=== PATIENT | male | born 1990 | race Caucasian/White ===

== ENCOUNTER 2024-05-09 03:34 | Emergency (ER) | payer SELFPAY ==
--- NOTE | 2024-05-09 04:09 | EDPHYS ---
Physician Documentation [facility] Name: Brett Strauss Age: 33 yrs Sex: Male : 1990 Arrival Date: 05/09/2024 Time: 03:34 Bed 6 Private MD: ED Physician Van Sadler HPI: 05/09 04:06 This 33 yrs old Male presents to ER via Ambulatory with complaints of Ear Pain. sp3 04:06 33-year-old male with history of diabetes, hypertension presents with left ear pain sp3 after swimming over the weekend. Pain is worse when he moves his ear. Patient has history of this in the past with otitis externa. He denies any fever, neck pain, jaw pain, dental pain, back pain, chest pain, shortness of breath, abdominal pain, nausea, vomiting, diarrhea, fever, known sick contacts, travel history, or any other signs or symptoms on ROS at this time.. Historical: - Allergies: 03:46 No Known Allergies; br2 - Home Meds: 03:46 Metformin Oral [Active]; lisinopril Oral [Active]; br2 - PMHx: 03:46 Diabetes mellitus; Hypertensive disorder; br2 - Immunization history:: Adult Immunizations unknown, Client reports having NOT received the Covid vaccine. - Infectious Disease History:: Denies. - Social history:: Smoking status: Patient denies any tobacco usage or history of. ROS: 04:06 Constitutional: Negative for fever, chills, and weight loss, Eyes: Negative for injury, sp3 pain, redness, and discharge, Neck: Negative for injury, pain, and swelling, Cardiovascular: Negative for chest pain, palpitations, and edema, Respiratory: Negative for shortness of breath, cough, wheezing, and pleuritic chest pain, Abdomen/GI: Negative for abdominal pain, nausea, vomiting, diarrhea, and constipation, Back: Negative for injury and pain, MS/Extremity: Negative for injury and deformity, Skin: Negative for injury, rash, and discoloration, Neuro: Negative for headache, weakness, numbness, tingling, and seizure, Psych: Negative for depression, anxiety, suicide ideation, homicidal ideation, and hallucinations, Allergy/Immunology: Negative for hives, rash, and allergies, Endocrine: Negative for neck swelling, polydipsia, polyuria, polyphagia, and marked weight changes, 04:06 All other systems are negative, Exam: 04:06 Constitutional: This is a well developed, well nourished patient who is awake, alert, sp3 and in no acute distress. Head/Face: Normocephalic, atraumatic. Eyes: Pupils equal round and reactive to light, extra-ocular motions intact. Lids and lashes normal. Conjunctiva and sclera are non-icteric and not injected. Cornea within normal limits. Periorbital areas with no swelling, redness, or edema. Neck: Trachea midline, no thyromegaly or masses palpated, and no cervical lymphadenopathy. Supple, full range of motion without nuchal rigidity, or vertebral point tenderness. No Meningismus. Chest/axilla: Normal chest wall appearance and motion. Nontender with no deformity. No lesions are appreciated. Cardiovascular: Regular rate and rhythm with a normal S1 and S2. No gallops, murmurs, or rubs. Normal PMI, no JVD. No pulse deficits. Respiratory: Lungs have equal breath sounds bilaterally, clear to auscultation and percussion. No rales, rhonchi or wheezes noted. No increased work of breathing, no retractions or nasal flaring. Abdomen/GI: Soft, non-tender, with normal bowel sounds. No distension or tympany. No guarding or rebound. No evidence of tenderness throughout. Back: No spinal tenderness. No costovertebral tenderness. Full range of motion. Skin: Warm, dry with normal turgor. Normal color with no rashes, no lesions, and no evidence of cellulitis. MS/ Extremity: Pulses equal, no cyanosis. Neurovascular intact. Full, normal range of motion. Neuro: Awake and alert, GCS 15, oriented to person, place, time, and situation. Cranial nerves II-XII grossly intact. Motor strength 5/5 in all extremities. Sensory grossly intact. Cerebellar exam normal. Normal gait. Psych: Awake, alert, with orientation to person, place and time. Behavior, mood, and affect are within normal limits. 04:06 ENT: Left external ear canal swollen and edematous with crusting discharge. Cerumen also present. TM partially visualized and demonstrates no erythema.. Vital Signs: 03:40 BP 140 / 97; Pulse 77; Resp 18; Temp 97.5; Pulse Ox 100% ; br2 04:15 BP 129 / 85; Pulse 71; Resp 18; Pulse Ox 99% on R/A; br2 MDM: 03:57 Patient medically screened. sp3 04:07 Data reviewed: vital signs, nurses notes. ED course: 33-year-old male with left otitis sp3 external. Patient clinically ruled out for sepsis, shock or any other critical process. We will discharge him on Ciprodex and follow-up with ENT as needed.. Administered Medications: No medications were administered Disposition Summary: 05/09/24 04:08 Discharge Ordered Notes: Location: Home sp3 Condition: Stable sp3 Diagnosis - Other otitis externa, left ear sp3 Followup: sp3 - With: Private Physician - When: Upon discharge from the Emergency Department - Reason: Continuance of care Followup: sp3 - With: Lorin Mcgraw MD - When: Upon discharge from the Emergency Department - Reason: Recheck today's complaints Discharge Instructions: - Discharge Summary Sheet sp3 - Otitis Externa sp3 Forms: - Medication Reconciliation Form sp3 - Antibiotic Education sp3 - Prescription Opioid Use sp3 - Patient Portal Instructions sp3 - Leadership Thank You Letter sp3 Prescriptions: - Ciprodex 0.3-0.1 % Otic drops, suspension - instill 4 drops OTIC route every 12 hours for 7 days , for ears ONLY; 5 sp3 milliliter; Refills: 0, Product Selection Permitted Signatures: Van Sadler MD MD sp3 Melania Hinton, RN RN br2
--- NOTE | 2024-05-09 04:09 | ER ---
Nurse's Notes [facility] Name: Brett Strauss Age: 33 yrs Sex: Male : 1990 Arrival Date: 05/09/2024 Time: 03:34 Bed 6 Private MD: Diagnosis: Other otitis externa, left ear Presentation: 05/09 03:40 Chief complaint: Patient states: left ear pain for the last 4 days. ibuprofen not br2 helping. denies drainage. ibuprofen 8000mg taken 2 hrs ocean [employer]. 03:40 Coronavirus screen: Client denies travel out of the [place] in the last 14 days. Ebola br2 Screen: Patient denies travel to an Ebola-affected area in the 21 days before illness onset. Initial Sepsis Screen: Does the patient meet any 2 criteria? No. Patient's initial sepsis screen is negative. Does the patient have a suspected source of infection? No. Patient's initial sepsis screen is negative. Risk Assessment: Do you want to hurt yourself or someone else? Patient reports no desire to harm self or others. Onset of symptoms was May 05, 2024. 03:40 Method Of Arrival: Ambulatory br2 03:40 Method Of Arrival: Ambulatory br2 03:40 Acuity: RUBEN 5 br2 Triage Assessment: 03:46 General: Appears in no apparent distress. General: Behavior is calm. Pain: Complains of br2 pain in left ear. EENT: Reports pain in left ear. Historical: - Allergies: 03:46 No Known Allergies; br2 - Home Meds: 03:46 Metformin Oral [Active]; lisinopril Oral [Active]; br2 - PMHx: 03:46 Diabetes mellitus; Hypertensive disorder; br2 - Immunization history:: Adult Immunizations unknown, Client reports having NOT received the Covid vaccine. - Infectious Disease History:: Denies. - Social history:: Smoking status: Patient denies any tobacco usage or history of. Screenin:53 [facility] ED Fall Risk Assessment (Adult) History of falling in the last 3 months, br2 including since admission No falls in past 3 months (0 pts) Confusion or Disorientation No (0 pts) Intoxicated or Sedated No (0 pts) Impaired Gait No (0 pts) Mobility Assist Device Used No (0 pt) Altered Elimination No (0 pt) Score/Fall Risk Level 0 - 2 = Low Risk Oriented to surroundings. Abuse screen: Denies threats or abuse. Denies injuries from another. Nutritional screening: No deficits noted. Tuberculosis screening: No symptoms or risk factors identified. Assessment: 03:55 EENT: Reports pain in left ear. br2 Vital Signs: 03:40 BP 140 / 97; Pulse 77; Resp 18; Temp 97.5; Pulse Ox 100% ; br2 04:15 BP 129 / 85; Pulse 71; Resp 18; Pulse Ox 99% on R/A; br2 ED Course: 03:37 Patient arrived in ED. gm2 03:38 Van Sadler MD is Attending Physician. sp3 03:40 Melania Hinton, ADRIÁN is Primary Nurse. br2 03:46 Triage completed. br2 03:51 Arm band placed on right wrist. br2 04:08 Lorin Mcgraw MD is Referral Physician. sp3 04:11 No provider procedures requiring assistance completed. Patient did not have IV access br2 during this emergency room visit. 04:14 Patient has correct armband on for positive identification. Provided Education on: br2 discharge instructions . Administered Medications: No medications were administered Medication: 03:53 VIS not applicable for this client. br2 Outcome: 04:08 Discharge ordered by . sp3 04:13 Discharged to home ambulatory, br2 04:13 Condition: stable 04:13 Discharge instructions given to patient, Instructed on discharge instructions, follow up and referral plans. medication usage, Demonstrated understanding of instructions, medications, Prescriptions given X 1, 04:17 Patient left the ED. br2 Signatures: Van Sadler MD MD sp3 Debo Zee gm2 Melania Hinton, ADRIÁN RN br2
[2024-05-09 04:22] VITALS: TEMP 97.5
[2024-05-09 04:23] VITALS: BP 129/85; O2SAT 99
== END 2024-05-09 04:17 | disposition home or self-care (01) ==
LOC: ER 03:34
DX: H60.8X2 Other otitis externa, left ear (principal); E11.9 Type 2 diabetes mellitus without complications; I10 Essential (primary) hypertension; Z79.84 Long term (current) use of oral hypoglycemic drugs; Z79.899 Other long term (current) drug therapy
CPT/HCPCS: 99283